=== PATIENT | female | born 2000 | race Caucasian/White ===

== ENCOUNTER 2019-08-13 23:47 | Emergency (ER) | payer MEDICAID ==
[~2019-08-13] VITALS: Ht 170.2 cm; Wt 79.5 kg
[2019-08-13 23:58] VITALS: Ht 170.2 cm; Wt 79.5 kg
[2019-08-14 01:41] VITALS: BP 136/71
== END 2019-08-14 01:41 | disposition home or self-care (01) ==
LOC: ED 23:47
DX: J02.9 Acute pharyngitis, unspecified (principal); M79.10 Myalgia, unspecified site
CPT/HCPCS: 87804; J1885; Q0162

== ENCOUNTER 2020-03-24 14:10 | Emergency (ER) | payer MEDICAID, SELFPAY ==
[~2020-03-24] VITALS: Ht 160 cm; Wt 76.2 kg
[2020-03-24 14:25] VITALS: Ht 160 cm; Wt 76.2 kg
[2020-03-24 14:53] LABS: BASOPHIL % 0.5 % (0-2); PLATELET COUNT 168 x10^3mcL (130-400); RED CELL DISTRIBUTION WIDTH 13.9 % (11.5-14.5)
[2020-03-24 15:12] LABS: CHLORIDE SERUM 106 mmol/L (98-107); CREATININE SERUM 0.9 mg/dL (0.6-1.0); GFR1 > 60 mL/min; GLUCOSE SERUM 102 mg/dL (74-106); POTASSIUM SERUM 3.9 mmol/L (3.5-5.1); SODIUM SERUM 145 mmol/L (136-145)
[2020-03-24 15:17] LABS: ALBUMIN 4.3 g/dL (3.4-5.0); ALKALINE PHOSPHATASE 90 U/L (46-116); ALT/SGPT 48 U/L (14-59); AST/SGOT 42 U/L (15-37); BILIRUBIN TOTAL 0.4 mg/dL (0.20-1.00); TOTAL PROTEIN, SERUM 7.9 g/dL (6.4-8.2)
[2020-03-24 16:47] LABS: microscopic required? NO
[2020-03-24 17:11] LABS: UA SPECIFIC GRAVITY <=1.005 (1.005-1.035); urine erythrocyte NEGATIVE (NEGATIVE)
[2020-03-24 17:23] LABS: AMPHETAMINE QUAL UR NONE DETECTED (See below)
[2020-03-25 21:50] VITALS: BP 123/64
== END 2020-03-24 21:50 | disposition home or self-care (01) ==
LOC: ED 14:10
PROVIDERS: Emergency Medicine
DX: S50.812A Abrasion of left forearm, initial encounter (principal); S50.811A Abrasion of right forearm, initial encounter; R45.851 Suicidal ideations; F10.129 Alcohol abuse with intoxication, unspecified; X58.XXXA Exposure to other specified factors, initial encounter; Y93.89 Activity, other specified; Y92.89 Other specified places as the place of occurrence of the external cause; Y99.8 Other external cause status
CPT/HCPCS: G0480; Q0162; U0003-CS

== ENCOUNTER 2020-10-12 19:32 | Emergency (ER) | payer MEDICAID ==
[~2020-10-12] VITALS: Ht 170.2 cm; Wt 80.7 kg
[2020-10-12 19:43] VITALS: Ht 170.2 cm; Wt 80.7 kg
[2020-10-12] MEDS ORDERED: NAPROXEN375 MG PO (20:53)
[2020-10-12 21:04] VITALS: BP 128/61
== END 2020-10-12 21:04 | disposition home or self-care (01) ==
LOC: ED 19:32
DX: R10.31 Right lower quadrant pain (principal); R11.0 Nausea
CPT/HCPCS: 87491; 87591